=== PATIENT | male | born 1990 | race Caucasian/White ===

== ENCOUNTER 2017-03-25 20:10 | Emergency (ER) | payer MEDICAID, OTHER ==
[~2017-03-25] VITALS: Ht 190.5 cm; Wt 162.7 kg
[~2017-03-25 20:10] MED LIST: AMBI10TA PO; BACI500T TOP; BISA10R RECTAL; COMMODE 3:1; DOCU1CAP39 PO; FURO20 PO; HYDR10SO PO; KCL10 PO; MAGN30S PO; WALKER ROLLING; WHEELCHAIR RENTAL RA
[2017-03-25 20:14] VITALS: BP 148/78; PULSE 73; RESP 18; TEMP 98.5; O2SAT 97
[2017-03-25] MEDS ORDERED: PIPERACIL-TAZO 4.5 GM PREMIX 100 ML IV ONE (21:00)
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
--- NOTE | 2017-03-25 21:51 | RADRPT ---
EXAM DATE/TIME: 03/25/2017 21:30 [facility] COMPARISON: ELBOW LEFT COMPLETE (4 VWS), January 25, 2016, 12:50. INDICATIONS : Severe left elbow pain. Unknown injury. MEDICAL HISTORY : None. SURGICAL HISTORY : None. ORIF ENCOUNTER: Subsequent ACUITY: 1 day PAIN SCORE: 9/10 LOCATION: Left upper extremity FINDINGS: An extramedullary plate is identified across electric process following oral. Moderate to severe hypertrophic arthropathy is identified at the radiocapitellar joint. There is sign ificant joint space narrowing with marginal spurring. There is no evidence of acute fracture or joint effusion. CONCLUSION: 1. Moderate to severe arthropathy of the radiocapitellar joint. 2. No evidence of acute fracture or joint effusion. 3. Proximal ulnar plate from previous ORIF. Justin Roberto MD on March 25, 2017 at 21:47 Board Certified Radiologist. This report was verified electronically.
[2017-03-25] MEDS ORDERED: IBUP800T23 PO (22:09)
[2017-03-25 22:12] VITALS: BP 144/72; PULSE 72; RESP 18; O2SAT 97
[2017-03-25] MEDS ORDERED: IBUPROFEN 800 MG TAB PO ONE (22:15)
== END 2017-03-25 22:27 | disposition home or self-care (01) ==
LOC: PHED 20:10
DX: M25.522 Pain in left elbow (principal); M13.822 Other specified arthritis, left elbow
CPT/HCPCS: 73080; 99283

== ENCOUNTER 2017-04-27 14:06 | Emergency (ER) | payer MEDICAID ==
[~2017-04-27] VITALS: Ht 190.5 cm; Wt 160.0 kg
[~2017-04-27 14:06] MED LIST changes: -AMBI10TA PO; -BACI500T TOP; -BISA10R RECTAL; -COMMODE 3:1; -DOCU1CAP39 PO; -FURO20 PO; -HYDR10SO PO; +IBUP1TAB7 PO; -KCL10 PO; -MAGN30S PO; -WALKER ROLLING; -WHEELCHAIR RENTAL RA
[2017-04-27 14:08] VITALS: BP 146/85; PULSE 73; RESP 14; TEMP 97.8; O2SAT 97
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
[2017-04-27] MEDS ORDERED: ROBA500T PO (18:44)
[2017-04-27] MEDS ORDERED: ACETAMINOPHEN/HYDROcodone 325 MG/5 MG TAB PO ONE (18:45)
[2017-04-28] MEDS ORDERED: IBUP1TAB7 PO (06:00)
== END 2017-04-27 19:25 | disposition home or self-care (01) ==
LOC: NEPK 14:06
DX: M24.522 Contracture, left elbow (principal)
CPT/HCPCS: 99283

== ENCOUNTER 2017-04-28 05:01 | Emergency (ER) | payer MEDICAID ==
[~2017-04-28] VITALS: Ht 190.5 cm; Wt 164.0 kg
[~2017-04-28 05:01] MED LIST changes: +ROBA500T PO
[2017-04-28 05:11] VITALS: BP 140/79; PULSE 71; RESP 18; TEMP 97.8; O2SAT 97
[2017-04-28 05:15] VITALS: BP 140/79; PULSE 71; RESP 18; TEMP 97.8; O2SAT 97
[2017-04-28] MEDS ORDERED: oxyCODONE/ACETAMINOPHEN 7.5 MG/325 MG TAB PO ONE (05:30)
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
[2017-04-28] MEDS ORDERED: IBUP1TAB7 PO (06:00)
--- NOTE | 2017-04-28 06:09 | RADRPT ---
EXAM DATE/TIME: 04/28/2017 05:39 [facility] COMPARISON: ELBOW LEFT COMPLETE (4 VWS), March 25, 2017, 21:30. INDICATIONS : Entire left elbow pain. No known recent injury. MEDICAL HISTORY : Previous left elbow fracture. SURGICAL HISTORY : ORIF left elbow ENCOUNTER: Initial ACUITY: 2 weeks PAIN SCORE: 9/10 LOCATION: Left upper extremity FINDINGS: The ulnar plate and screw device appears intact and has similar characteristics to prior radiograph. Remodeling deformity of the radiocapitellar joint has similar features the prior exam. There is a c hanged configuration to the medial distal humeral condyle with thinning of the cortex. Some deformit y of the cortex was present on prior conventional radiograph and it is uncertain whether there is any definite change or not. The anterior fat pad is similar in thickness to prior exam. There is a catalina ency seen posterior to the distal humerus which could represent fluid. CONCLUSION: Equivocal findings regarding changed appearance when compared to 03/25/17: Possible elbow effusion an d possible thinning of the cortex of the medial humeral condyle. May consider performing a three-pha se bone scan to evaluate whether there is evidence of hyperemia and or focal bony reaction. Jose Lemons MD on April 28, 2017 at 6:02 Board Certified Radiologist. This report was verified electronically.
[2017-04-28 06:37] VITALS: BP 140/80
== END 2017-04-28 06:52 | disposition home or self-care (01) ==
LOC: PHED 05:01
DX: G89.29 Other chronic pain (principal); Z76.0 Encounter for issue of repeat prescription; Z95.1 Presence of aortocoronary bypass graft
CPT/HCPCS: 73080; 99283

== ENCOUNTER 2017-04-28 16:33 | Emergency (ER) | payer MEDICAID ==
[2017-04-28 16:36] VITALS: BP 137/80; PULSE 80; RESP 18; TEMP 97.9; O2SAT 95
--- NOTE | 2017-04-28 17:50 | PD ---
HPI Chief Complaint: Pain: Acute or Chronic Time Seen by Provider: 17:22 Travel History International Travel<30 days: No Contact w/Intl Traveler<30days: No Traveled to known affect area: No History of Present Illness HPI 27-year-old male here requesting bone scan of his left elbow. Patient was seen earlier today by another provider at 5 AM for evaluation of acute on chronic left elbow pain after traumatic injury and ORIF of the left elbow in 2016. According to the previous providers note he had an x-ray of the left elbow and showed possible cortical lucency and a three-dimensional bone scan was recommended. The patient ended up leaving the hospital prior to having the scan ordered. He presents now requesting the scan. He reports he's had chronic pain in the left elbow since the injury and surgical repair. He denies fever, chills, warmth or redness of the elbow. He denies any recent injury. PFSH Past Medical History Arthritis: No Asthma: No Autoimmune Disease: No Anxiety: No Depression: No Heart Rhythm Problems: Yes Cancer: No Cardiovascular Problems: Yes (OPEN HEART AT 2 DAYS ABLATION AGE 10 NE 13) High Cholesterol: No Chemotherapy: No Chest Pain: No Congestive Heart Failure: No COPD: No Cerebrovascular Accident: No Diabetes: No Diminished Hearing: No Endocrine: No Gastrointestinal Disorders: No GERD: No Genitourinary: No Headaches: No Hepatitis: No Hiatal Hernia: No Heparin Induced Thrombocytopen: No Hypertension: No Immune Disorder: No Implanted Vascular Access Dvce: No Kidney Stones: No Musculoskeletal: Yes (torn acl left leg , fx tibia left , LEFT ARM FRACTURE) Neurologic: No Psychiatric: No Reproductive: No Respiratory: No Migraines: No Radiation Therapy: No Renal Failure: No Seizures: No Sickle Cell Disease: No Sleep Apnea: No Thyroid Disease: No Ulcer: No Past Surgical History Abdominal Surgery: No AICD: No Arteriovenous Shunt: No Body Medical Devices: EX FIXATOR TO LEFT ARM, HINGED KNEE BRACE TO LEFT LEG Cardiac Surgery: Yes (open heart surgery as ) Ear Surgery: No Endocrine Surgery: No Eye Surgery: Yes (cataract and retinal detachment all in left, 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, MULTIPLE SURG.) Genitourinary Surgery: No Gynecologic Surgery: No Insulin Pump: No Joint Replacement: Yes Neurologic Surgery: No Oral Surgery: No Pacemaker: No Thoracic Surgery: No Social History Alcohol Use: No Tobacco Use: No Substance Use: No Allergies-Medications (Allergen,Severity, Reaction): Coded Allergies: No Known Allergies (Verified Adverse Reaction, Unknown, 04/28/17) Reported Meds & Prescriptions Reported Meds & Active Scripts Active Ibuprofen 800 Mg Tab 800 Mg PO Q8H PRN Robaxin (Methocarbamol) 500 Mg Tab 500 Mg PO TID 5 Days Review of Systems Except as stated in HPI: all other systems reviewed are Neg General / Constitutional: No: Fever Physical Exam Narrative GENERAL: SKIN: Warm and dry. HEAD: Normocephalic. CARDIOVASCULAR: Regular rate and rhythm without murmurs, gallops, or rubs. RESPIRATORY: Breath sounds equal bilaterally. No accessory muscle use. MUSCULOSKELETAL: No cyanosis. Attention to the left elbow: Mild swelling of the forearm. Tenderness over the medial aspect of the elbow. No erythema or warmth. 2+ pulses in the extremity. Brisk cap refill Data Data Last Documented VS Vital Signs Date Time Temp Pulse Resp B/P (MAP) Pulse Ox O2 Delivery O2 Flow Rate FiO2 04/28/17 16:36 97.9 80 18 137/80 (99) 95 MDM Medical Decision Making Medical Screen Exam Complete: Yes Emergency Medical Condition: Yes Differential Diagnosis Elbow pain, arthritis, and contracture, hardware malfunction Narrative Course 27 year old male here requesting bone scan. He was seen earlier this morning complaining of continued left elbow pain x-ray found possible thinning of the cortex of the medial humeral condyle with recommended three-phase bone scan. According to the previous providers she was going to perform the bone scan from the ER but the patient decided to leave prior to the scan. The patient has no outward signs of infection. The elbow is mildly edematous but without erythema or warmth. Patient is afebrile. He is nontoxic appearing. I do not suspect septic joint or osteoma myelitis. I spoke with my attending physician regarding the bone scan and we both agreed that this is a nonemergent scan and should be done on an outpatient basis. Patient was referred to Dr. Wills who is automotive parts person orthopedic doctor who actually performed his left elbow ORIF in 2015. I discussed in detail with patient and family the need for follow-up with orthopedic doctor on Sunday. He was given a printout of the x-ray results. He agrees to follow-up. Diagnosis Primary Impression: Left elbow pain Referrals: Jeff Wills MD Additional Instructions: Make an appointment for follow-up with orthopedic Dr. Wills If you're unable to follow up with him make an appointment with another orthopedic doctor. It is recommended the use has a 3 phase bone scan done on an outpatient basis this can be ordered by her PCP or an orthopedic doctor. You were given a copy of the x-ray results to provide your primary doctor or orthopedic doctor. Disposition: 01 DISCHARGE HOME Condition: Stable Shaunna Cintron Apr 28, 2017 17:50
== END 2017-04-28 18:04 | disposition home or self-care (01) ==
LOC: PHEFT 16:33
DX: R52 Pain, unspecified (principal); Z79.899 Other long term (current) drug therapy
CPT/HCPCS: 99281

== ENCOUNTER 2017-11-22 22:50 | Emergency (ER) | payer MEDICAID ==
[~2017-11-22] VITALS: Ht 190.5 cm; Wt 174.1 kg
[2017-11-22 22:57] VITALS: BP 155/70; PULSE 72; RESP 18; TEMP 98.5; O2SAT 96
--- NOTE | 2017-11-22 23:29 | PD ---
HPI Chief Complaint: Oral / Dental Pain or Problem Time Seen by Provider: 23:12 Travel History International Travel<30 days: No Contact w/Intl Traveler<30days: No Traveled to known affect area: No History of Present Illness HPI 27-year-old male came to the emergency room for dental pain. Patient says this has been going on for 2 days. It is his right lower premolar. Patient says he is concerned that he may have an abscess. However there has not been any facial swelling. Patient does not have a dentist. He says that this tooth has bothered him in the past. Vital signs are stable. He did not appear to be in any significant distress. Pain is worse upon chewing or touching the area. No radiation of the pain. [facility] Past Medical History Narrative Medical List of his past medical, surgical, social and family history reviewed from the nursing note. Arthritis: No Asthma: No Autoimmune Disease: No Anxiety: No Depression: No Heart Rhythm Problems: Yes Cancer: No Cardiovascular Problems: Yes (open heart SX as an ) High Cholesterol: No Chemotherapy: No Chest Pain: No Congestive Heart Failure: No COPD: No Cerebrovascular Accident: No Diabetes: No Diminished Hearing: No Endocrine: No Gastrointestinal Disorders: No GERD: No Genitourinary: No Headaches: No Hepatitis: No Hiatal Hernia: No Heparin Induced Thrombocytopen: No Hypertension: No Immune Disorder: No Implanted Vascular Access Dvce: No Kidney Stones: No Musculoskeletal: Yes (torn acl left leg , fx tibia left , LEFT ARM FRACTURE) Neurologic: No Psychiatric: No Reproductive: No Respiratory: No Migraines: No Radiation Therapy: No Renal Failure: No Seizures: No Sickle Cell Disease: No Sleep Apnea: No Thyroid Disease: No Ulcer: No Tetanus Vaccination: < 5 Years Influenza Vaccination: Yes Past Surgical History Abdominal Surgery: No AICD: No Arteriovenous Shunt: No Body Medical Devices: EX FIXATOR TO LEFT ARM, HINGED KNEE BRACE TO LEFT LEG Cardiac Surgery: Yes (open heart surgery as ) Ear Surgery: No Endocrine Surgery: No Eye Surgery: Yes (cataract and retinal detachment all in left, 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 Reported Meds & Prescriptions Reported Meds & Active Scripts Active Ibuprofen 600 Mg Tab 600 Mg PO Q6H PRN Amoxicillin 500 Mg Cap 500 Mg PO BID 10 Days Ibuprofen 800 Mg Tab 800 Mg PO Q8H PRN Robaxin (Methocarbamol) 500 Mg Tab 500 Mg PO TID 5 Days Narrative Medication List of his home medications reviewed from the nursing note. Review of Systems Except as stated in HPI: all other systems reviewed are Neg HENT: Positive: Dental Difficulties Physical Exam Narrative GENERAL: Awake, alert, morbidly obese, no obvious distress SKIN: Focused skin assessment warm/dry. HEAD: Atraumatic. Normocephalic. EYES: Pupils equal and round. No scleral icterus. No injection or drainage. ENT: No nasal bleeding or discharge. Mucous membranes pink and moist. Right lower premolar has significant caries. No gum swelling or fluctuance NECK: Trachea midline. No JVD. CARDIOVASCULAR: Regular rate and rhythm. No murmur appreciated. RESPIRATORY: No accessory muscle use. Clear to auscultation. Breath sounds equal bilaterally. GASTROINTESTINAL: Abdomen soft, non-tender, nondistended. Hepatic and splenic margins not palpable. MUSCULOSKELETAL: No obvious deformities. No clubbing. No cyanosis. No edema. NEUROLOGICAL: Awake and alert. No obvious cranial nerve deficits. Motor grossly within normal limits. Normal speech. PSYCHIATRIC: Appropriate mood and affect; insight and judgment normal. Data Data Last Documented VS Orders Orders Amoxicillin (Trimox) (11/22/17 23:45) Acetamin-Hydrocod 325-5 Mg (Gallitzin 5-325 (11/22/17 23:45) Ibuprofen (Motrin) (11/22/17 23:45) Ed Discharge Order (11/22/17 23:34) [facility] Medical Decision Making Medical Screen Exam Complete: Yes Emergency Medical Condition: Yes Medical Record Reviewed: Yes Differential Diagnosis Dental caries Narrative Course 11:38 PM patient was given a dose of amoxicillin and hydrocodone and Motrin for pain. I recommended him to follow-up with a dentist. He will be discharged home on prescriptions. Procedures EKG Prior to Arrival: No Diagnosis Primary Impression: Dental caries Additional Impression: Dentalgia Additional Instructions: You need to see a dentist to get the tooth taken care of. Take the medication as per prescription direction. Use lukewarm saline water to rinse your mouth 4- 5 times a day which would make the antibiotic work better. Med/Other Pt SpecificInfo: Prescription(s) given Scripts Ibuprofen (Ibuprofen) 600 Mg Tab 600 MG PO Q6H Y for Pain/Inflammation, #40 TAB 0 Refills Prov: Jose Michael MD 11/22/17 Amoxicillin (Amoxicillin) 500 Mg Cap 500 MG PO BID for Infection for 10 Days, #20 CAP 0 Refills Prov: Jose Michael MD 11/22/17 Disposition: 01 DISCHARGE HOME Condition: Stable Jose Michael MD Nov 22, 2017 23:29
[2017-11-22] MEDS ORDERED: IBUP-232 PO (23:35)
[2017-11-22] MEDS ORDERED: AMOX500C PO (23:35)
[2017-11-22] MEDS ORDERED: ACETAMINOPHEN/HYDROcodone 325 MG/5 MG TAB PO ONE (23:45)
[2017-11-22] MEDS ORDERED: AMOXICILLIN (TRIHYDRATE) 500 MG CAP PO ONE (23:45)
[2017-11-22] MEDS ORDERED: IBUPROFEN 600 MG TAB PO ONE (23:45)
[2017-11-22 23:49] VITALS: BP 132/85; TEMP 98.3
== END 2017-11-22 23:51 | disposition home or self-care (01) ==
LOC: PHED 22:50
DX: K02.9 Dental caries, unspecified (principal); K08.89 Other specified disorders of teeth and supporting structures
CPT/HCPCS: 99283